=== PATIENT | female | born 1960 | race Caucasian/White ===

== ENCOUNTER → 2017-05-16 | Outpatient (CLI) | payer BC ==
[~2017-05-16] MED LIST: ALBUTEROL2 PUFFS/17 IN; ALDACTONE50 MG PO; AMBIEN 10MG TAB10 MG PO; AMBIEN10 MG PO; ASPIRIN 81MG TA81 MG PO; ASPIRIN EC325 M1 PO; ASTELIN NA137 MCG/BO; ATORVASTATIN CA20 MG PO; BUPROPION HCL100 M3 PO; BUTALB/APAP/CAF1 TAB PO; CARDIZEM CD360 MG PO; CARDIZEM120 MG PO; CLOPIDOGREL75 M1 PO; CLOPIDOGREL75 M2 PO; CRESTOR10 MG PO; CYCLOBENZ5 MG PO; DARVOCET-N 1001 EACH PO; FIORICET 325 MG1 TAB PO; FLUTICASONE 50M16 GM; FUROSEMIDE 20MG20 MG PO; GABAPENTIN100 M1 PO; HYCODAN 1.5 MG-1 TAB PO; K-DUR 2020 MEQ PO; MAXZIDE 25 MG-31 TAB PO; MECLIZINE 25MG25 MG PO; MEDROL 4MG. DOSE4 MG PO; MELOXICAM15 MG PO; MIRALAX17 GM/DOSE PO; MOBIC15 MG PO; NAPROXEN SOD.550 MG PO; NAPROXEN550 MG PO; NASONEX0.05 MG/AC NS; NEURONTIN100 MG OR; NITROLINGU0.4 MG/ACT SL; ONDANSETRON 4MG4 M1 PO; POTASSIUM CHLO20 ME2 PO; PRIMIDONE 50 MG50 MG PO; PROZAC20 MG PO; SINGULAIR 10 MG10 MG PO; SPIRIVA HA1 PUFF/INH IH; SPIRONOLACTONE50 MG OR; STAHIST1 TER PO; SYMBICORT1 AE1 IH; TRANDATE200 MG PO; WELLBUTRIN100 MG PO; XOPENEX HF0.045 MG/A IH; XOPENEX3 ML IH; ZEGERID 20 MG-11 CAP PO; ZEGERID 40 MG-11 CAP PO; ZOFRAN4 MG PO; Zofran4 MG PO
[2017-05-16 16:01] LABS: BUN 20 mg/dL (7-18)
[2017-05-16 16:13] LABS: GFR (ESTIMATED) 46 ML/MIN (59-)
== END ==
LOC: LAB 11:02
PROVIDERS: Nurse Practitioner Family
DX: G25.0 Essential tremor (principal); E78.2 Mixed hyperlipidemia